=== PATIENT | male | born 1970 | race Caucasian/White ===

== ENCOUNTER 2016-11-20 08:55 | Observation (INO) | payer OTHER ==
[~2016-11-20] VITALS: Ht 188 cm; Wt 98.9 kg
[2016-11-20] VITALS (10 sets, daily range): BP systolic 97–132; BP diastolic 69–90
[~2016-11-20 08:55] MED LIST: AMOX500C2 PO; AMOX500T2 PO; APIX5TAB2 PO; DILT240C54 PO; DILT240C86 PO; DILT300C PO; HYDR-1231 PO; NITR-65 PO; POTA99TA15 PO; RIVA20TA2 PO; SERT50TA PO; TMSL.4C PO
[2016-11-20] MEDS ORDERED: METO-274 PO (09:11)
[2016-11-20] MEDS ORDERED: DILTIAZEM DRIP 100 MG in SODIUM CHLORIDE (ADD-VANTAGE) 100 ML IV SCH (09:15)
[2016-11-20] MEDS ORDERED: DILTIAZEM 25 MG/5 ML INJ (CARDIZEM) VIAL IVP ONE (09:15)
[2016-11-20] MEDS ORDERED: ASPIRIN 81 MG CHEW (CHILDREN'S ASA) PO ONE (09:15)
[2016-11-20 09:17] LABS: BASOPHILS % (AUTO) 0 % (0-10); EOSINOPHILS # (AUTO) 0.1 10^3/uL (0.0-0.3); EOSINOPHILS % (AUTO) 1 % (0-10); LYMPHOCYTES # (AUTO) 1.9 X 10^3 (1.0-4.0); LYMPHOCYTES % (AUTO) 25 % (12-44); MEAN CORPUSCULAR HEMOGLOBIN 31 PG (25-34); MEAN CORPUSCULAR HGB CONC 34 G/DL (32-36); MEAN CORPUSCULAR VOLUME 90 FL (80-99); MEAN PLATELET VOLUME 11.6 FL (7.4-10.4); MONOCYTES # (AUTO) 0.7 X 10^3 (0.0-1.0); MONOCYTES % (AUTO) 9 % (0-12); NEUTROPHILS % (AUTO) 65 % (42-75); PLATELET COUNT 158 10^3/uL (130-400); RED BLOOD COUNT 4.91 10^6/uL (4.35-5.85); RED CELL DISTRIBUTION WIDTH 12.9 % (10.0-14.5); WHITE BLOOD COUNT 7.7 10^3/uL (4.3-11.0)
[2016-11-20 09:26] LABS: INR 1.1 (0.8-1.4); PROTHROMBIN TIME PATIENT 13.7 SEC (12.2-14.7)
[2016-11-20 09:38] LABS: ALANINE AMINOTRANSFERASE 42 U/L (0-55); ALBUMIN 4.5 G/DL (3.2-4.5); ANION GAP 12 MMOL/L (5-14); ASPARTATE AMINO TRANSFERASE 34 U/L (5-34); BILIRUBIN,TOTAL 0.9 MG/DL (0.1-1.0); BLOOD UREA NITROGEN 15 MG/DL (7-18); BUN/CREATININE RATIO 12; CALCIUM 9.1 MG/DL (8.5-10.1); CARBON DIOXIDE 24 MMOL/L (21-32); CHLORIDE 104 MMOL/L (98-107); CREATININE SERUM 1.26 MG/DL (0.60-1.30); GFR ESTIMATED > 60; GLUCOSE 101 MG/DL (70-105); MAGNESIUM 2.3 MG/DL (1.8-2.4); POTASSIUM 4.5 MMOL/L (3.6-5.0); SODIUM 140 MMOL/L (135-145); TOTAL PROTEIN 7.6 G/DL (6.4-8.2)
[2016-11-20 09:45] LABS: MYOGLOBIN SERUM 51.1 NG/ML (10.0-92.0)
--- NOTE | 2016-11-20 09:46 | Diagnostic Imaging Report ---
INDICATION: Atrial fibrillation PA chest obtained at 9:29 a.m. Heart and mediastinal silhouette are normal in appearance. The lungs are clear. There is no pneumothorax or pleural fluid. IMPRESSION: Negative chest and no change from 08/24/16. Dictated by: Dictated on workstation # [id number]
--- NOTE | 2016-11-20 11:18 | Cardiology History & Physical ---
HPI-Cardiology Cardiology H&P Date of Admission 11-20-16 Primary Care Physician Nati,Local Physician Attending Physician Nenita Boyd MD FACP [facility] Consulting Physician JERROD Mr. Garza is a 46 year old male who is being admitted to ICU from the ED. He reports he had been at work all night and has only slept approx 2 hours in the last 24 hours. 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 No c/o CP, syncope or near syncope. He is currently feeling better. He states he has been taking his Torpol XL 100mg daily. Review of Systems-Cardiology Review of Systems Constitutional: As described under HPI Eyes: No blurred vision, No drainage, No pain, No vision change Ears/Nose/Throat: No ear discharge, No ear pain, No nasal drainage, No ulcerations Respiratory: As described under HPI Cardiovascular: As described under HPI Gastrointestinal: No constipation, No diarrhea, No nausea, No vomiting, No stool coloration changes Genitourinary: No dysuria, No discharge, No frequency, No hematuria, No urgency Skin: No rash, No skin related problems, No ulcerations Psychiatric/Neurological: No anxiety, No depression, No focal weakness, No seizure, No syncope Hematologic: No bleeding abnormalities JLB-Kxalxu-Yujruf Hx Patient Social History Alcohol Use: Occasionally Uses Recreational Drug Use: No Smoking Status: Former Smoker Former smoker/When Quit: February 09, 2008 Recent Foreign Travel: No Recent Infectious Disease Expo: No Immunizations Up To Date Tetanus Booster (TDap): Unknown Past Medical History PMH As described under Assessment. Family Medical History Family Medical History: He reports a brother with hypertension and palpitations. His sister has hypertension. No family h/o of premature CAD. Family History: 19 MOTHER Colon cancer G8 BROTHER Hypertension G8 SISTER Hypertension Kidney disease Allergies and Home Medications Allergies Coded Allergies: No Known Drug Allergies (Unverified , 09/05/14) Home Medications Metoprolol Succinate 100 Mg Tab.er.24h 100 MG PO DAILY (Reported) Physical Exam-Cardiology Physical Exam Vital Signs/I&O Vital Sign - Last 12Hours 11/20/16 11/20/16 11/20/16 11/20/16 08:59 09:12 09:21 12:25 Temp 98.1 98.0 Pulse 144 124 89 Resp 16 16 16 B/P 192/125 148/110 Pulse Ox 100 99 98 O2 Delivery Room Air Nasal Cannula O2 Flow Rate 2 2.00 2 11/20/16 11/20/16 11/20/16 11/20/16 12:30 13:00 13:00 14:00 Temp 96.8 Pulse 113 67 67 68 Resp 18 13 15 B/P 107/88 120/89 114/81 Pulse Ox 96 O2 Delivery Room Air Room Air Room Air 11/20/16 11/20/16 11/20/16 11/20/16 14:29 15:00 16:00 16:00 Temp 97.9 Pulse 100 101 67 67 Resp 17 13 13 B/P 113/81 97/74 102/74 102/74 Pulse Ox 98 96 96 O2 Delivery Room Air Room Air Room Air Capillary Refill : Less Than 3 Seconds Constitutional: appears stated ageNo apparent distress, well-developed well- nourished HEENT: PERRLNo discharge, hearing is well preserved oral hygience is goodNo ulceration, No xanthelasmas are seen Neck: No carotid bruit, carotid pulses are 2 + bilaterally Cardiovascular: irregularly irregularNo JVD, S1 and S2 Gastrointestinal: No tender, soft roundNo spleenomegaly Rectal: deferred Extremities: No clubbing, No cyanosis, No significant edema Neurologic/Psychiatric: alert oriented x 3 power is 5/5 both on sides Skin: No rash, No ulcerations Data Review Labs Laboratory Tests 11/20/16 09:05: Activated Partial Thromboplast Time 29, Alanine Aminotransferase (ALT/SGPT) 42, Albumin 4.5, Alkaline Phosphatase 58, Anion Gap 12, Aspartate Amino Transf (AST/ SGOT) 34, BUN/Creatinine Ratio 12, Basophils # (Auto) 0.0, Basophils (%) (Auto) 0, Blood Urea Nitrogen 15, Calcium Level 9.1, Carbon Dioxide Level 24, Chloride Level 104, Creatinine 1.26, Eosinophils # (Auto) 0.1, Eosinophils (%) (Auto) 1, Estimat Glomerular Filtration Rate > 60, Glucose Level 101, Hematocrit 44, Hemoglobin 15.0, INR Comment 1.1, Lymphocytes # (Auto) 1.9, Lymphocytes (%) ( Auto) 25, Magnesium Level 2.3, Mean Corpuscular Hemoglobin 31, Mean Corpuscular Hemoglobin Concent 34, Mean Corpuscular Volume 90, Mean Platelet Volume 11.6H, Monocytes # (Auto) 0.7, Monocytes (%) (Auto) 9, Myoglobin 51.1, Neutrophils # ( Auto) 5.0, Neutrophils (%) (Auto) 65, Platelet Count 158, Potassium Level 4.5, Prothrombin Time 13.7, Red Blood Count 4.91, Red Cell Distribution Width 12.9, Sodium Level 140, TSH [place] Testing 2.15, Total Bilirubin 0.9, Total Protein 7.6, Troponin I < 0.30, White Blood Count 7.7 Radiology NAME: JOHN GARZA [facility] REC#: [id number] PT STATUS: REG ER : 1970 PHYSICIAN: ALFRED GASTON MD ADMIT DATE: 11/20/16/ER Signed Date of Exam: 11/20/16 CHEST 1 VIEW, AP/PA ONLY INDICATION: Atrial fibrillation PA chest obtained at 9:29 a.m. Heart and mediastinal silhouette are normal in appearance. The lungs are clear. There is no pneumothorax or pleural fluid. IMPRESSION: Negative chest and no change from 08/24/16. Dictated by: Dictated on workstation # [id number] Dict: 11/20/16 0941 Trans: 11/20/16 0957 [facility] [id number] Interpreted by: ANGELA CARLSON MD Electronically signed by:ANGELA CARLSON MD 11/20/16 0959 ECG Impression ECG Initial ECG Impression: Atrial Fibrillation w/RVR A/P-Cardiology Assessment/Admission Diagnosis Atrial fib with RVR Hypertension PAF - electrical cardioversion on 05-03-13, 09-05-2014, and 03-01-15. RFA by Dr Link in May 2015. Oral anticoag stopped by Dr Link in Aug 2016 BETTE 09-05-14 and of 03-01-15 showed LVEF 60%. No significant valvular regurgitation or stenoses see. No evidence of intracardiac thrombus or intracardiac shunt CT Abd/Pelvis 09-10-14 showed calcification in the left renal pelvis near the ureteropelvic junction without significant obstruction - following with his PCP Intermittent heavy alcohol use - cessation advised Chronic tobacco use (chews) - cessation advised H/o anxiety Discussion and Recomendations H/O PAF for which he has seen Dr. Link in the past and has undergone several cardioversions and most recently ablation in 2015. He is currently in a-fib with RVR. He is being maintained on a Cardizem gtt. He was previously not on OAC. We will restart him on OAC with Eliquis for stroke prophylaxis. We have discussed this with him. We will do an echocardiogram to evaluate LVEF and valvular status. Further recommendations will be based on his hospital course. This H&P is being scribed by Tabitha Ribera APRN on behalf of Dr. Boyd after discussion regarding plan of care Physician Assessment Physician Assessment Lungs: good bilat air entry Cor: irreg A&R * As documented in our note above * I spoke with him and answered questions * Will be in ICU while on iv diltiazem ROCKY RIBERA Nov 20, 2016 11:18 NENITA BOYD MD FACP FAC CCDS Nov 20, 2016 17:12
[2016-11-20] MEDS ORDERED: APIXABAN 5 MG (ELIQUIS) TABLET PO ONE (11:30)
--- NOTE | 2016-11-20 11:33 | ED Cardiac General ---
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 He believes he is in atrial fibrillation. He has a history of atrial fibrillation and had an ablation procedure performed about a year and a half ago at [facility]. He was taken off of anticoagulation shortly after that ablation. He has had no episodes of A. fib to his knowledge in the interim. Atrial fibrillation is confirmed on the monitor and EKG. Allergies and Home Medications Allergies Coded Allergies: No Known Drug Allergies (Unverified , 09/05/14) Home Medications Metoprolol Succinate 100 Mg Tab.er.24h #30 (Reported) Review of Systems Constitutional: no symptoms reported EENTM: No Symptoms Reported Respiratory: No Symptoms Reported Cardiovascular: See HPI Gastrointestinal: No Symptoms Reported Genitourinary: No Symptoms Reported Musculoskeletal: no symptoms reported Skin: no symptoms reported Endocrine: No Symptoms Reported Past Zksyuiw-Yizzzc-Yxfodt Hx Patient Social History Alcohol Use: Occasionally Uses Recreational Drug Use: No Smoking Status: Former Smoker Former Smoker/When Quit: February 09, 2008 Recent Foreign Travel: No Contact w/Someone Who Travel: No Recent Infectious Disease Expo: No Recent Hopitalizations: No Immunizations Up To Date Tetanus Booster (TDap): Unknown Surgeries HX Surgeries: Yes (ATRIAL FIBRILLATION--S/P CARDIAC ABLATION) Surgeries: Appendectomy, Cardiac (ablation for treatment of atrial fibrillation ) Respiratory Hx Respiratory Disorders: No Cardiovascular Hx Cardiac Disorders: Yes (S/P ABLATION) Cardiac Disorders: Atrial Fibrillation, Hypertension Neurological Hx Neurological Disorders: Yes Neurological Disorders: Concussion Reproductive System Hx Reproductive Disorders: No Genitourinary Hx Genitourinary Disorders: No Gastrointestinal Hx Gastrointestinal Disorders: No Musculoskeletal Hx Musculoskeletal Disorders: No Endocrine Hx Endocrine Disorders: No HEENT HX ENT Disorders: No Cancer Hx Cancer: No Psychosocial Hx Psychiatric Problems: No Integumentary HX Skin/Integumentary Disorder: No Blood Transfusions Hx Blood Disorders: No Adverse Reaction to a Blood Tr: No Family Medical History Family Medial History: Colon cancer 19 MOTHER Hypertension G8 BROTHER G8 SISTER Kidney disease G8 SISTER Physical Exam Vital Signs Vital Sign - Last 12Hours 11/20/16 11/20/16 08:59 09:12 Temp 98.1 Pulse 144 Resp 16 B/P 192/125 Pulse Ox 100 O2 Delivery Room Air O2 Flow Rate 2 Capillary Refill : Less Than 3 Seconds General Appearance: WD/WN Mild Distress HEENT: PERRL/EOMI Normal ENT Inspection Neck: Normal Inspection Respiratory: Lungs Clear Normal Breath Sounds No Accessory Muscle Use No Respiratory Distress Cardiovascular: No Edema No Murmur Irregularly Irregular Tachycardia Gastrointestinal: Non Tender Soft Extremity: Normal Inspection No Pedal Edema Neurologic/Psychiatric: Alert Oriented x3 No Motor/Sensory Deficits Normal Mood/Affect senior software development engineer II-XII Norm as Tested Skin: Normal Color Warm/Dry Progress/Results/Core Measures Results/Orders Lab Results Laboratory Tests Test 11/20/16 09:05 Range/Units Activated Partial Thromboplast Time 29 24-35 SEC Alanine Aminotransferase (ALT/SGPT) 42 0-55 U/L Albumin 4.5 3.2-4.5 G/DL Alkaline Phosphatase 58 40-136 U/L Anion Gap 12 5-14 MMOL/L Aspartate Amino Transf (AST/SGOT) 34 5-34 U/L BUN/Creatinine Ratio 12 Basophils # (Auto) 0.0 0.0-0.1 10^3/uL Basophils (%) (Auto) 0 0-10 % Blood Urea Nitrogen 15 7-18 MG/DL Calcium Level 9.1 8.5-10.1 MG/DL Carbon Dioxide Level 24 21-32 MMOL/L Chloride Level 104 98-107 MMOL/L Creatinine 1.26 0.60-1.30 MG/DL Eosinophils # (Auto) 0.1 0.0-0.3 10^3/uL Eosinophils (%) (Auto) 1 0-10 % Estimat Glomerular Filtration Rate > 60 Glucose Level 101 70-105 MG/DL Hematocrit 44 40-54 % Hemoglobin 15.0 13.3-17.7 G/DL INR Comment 1.1 0.8-1.4 Lymphocytes # (Auto) 1.9 1.0-4.0 X 10^3 Lymphocytes (%) (Auto) 25 12-44 % Magnesium Level 2.3 1.8-2.4 MG/DL Mean Corpuscular Hemoglobin 31 25-34 PG Mean Corpuscular Hemoglobin Concent 34 32-36 G/DL Mean Corpuscular Volume 90 80-99 FL Mean Platelet Volume 11.6 H 7.4-10.4 FL Monocytes # (Auto) 0.7 0.0-1.0 X 10^3 Monocytes (%) (Auto) 9 0-12 % Myoglobin 51.1 10.0-92.0 NG/ML Neutrophils # (Auto) 5.0 1.8-7.8 X 10^3 Neutrophils (%) (Auto) 65 42-75 % Platelet Count 158 130-400 10^3/uL Potassium Level 4.5 3.6-5.0 MMOL/L Prothrombin Time 13.7 12.2-14.7 SEC Red Blood Count 4.91 4.35-5.85 10^6/uL Red Cell Distribution Width 12.9 10.0-14.5 % Sodium Level 140 135-145 MMOL/L TSH [place] Testing 2.15 0.35-4.94 UIU/ML Total Bilirubin 0.9 0.1-1.0 MG/DL Total Protein 7.6 6.4-8.2 G/DL Troponin I < 0.30 <0.30 NG/ML White Blood Count 7.7 4.3-11.0 10^3/uL My Orders Orders-ALFRED GASTON MD Cbc With Automated Diff (11/20/16 09:06) Magnesium (11/20/16 09:06) Chest 1 View, Ap/Pa Only (11/20/16 09:06) Ekg Tracing (11/20/16 09:06) Cardiac Profile 1 (11/20/16 09:06) Comprehensive Metabolic Panel (11/20/16 09:06) Myoglobin Serum (11/20/16 09:06) Protime With Inr (11/20/16 09:06) Partial Thromboplastin Time (11/20/16 09:06) O2 (11/20/16 09:06) Monitor-Rhythm Ecg Trace Only (11/20/16 09:06) Lipid Panel (11/21/16 06:00) Aspirin Chewable Tablet (Baby Aspirin Ch (11/20/16 09:15) Saline Lock/Iv-Start (11/20/16 09:06) Thyroid Analyzer (11/20/16 09:06) Diltiazem Injection (Cardizem Injection) (11/20/16 09:15) Sodium Chloride (Ad... W/Diltiazem Drip (11/20/16 09:15) Apixaban Tablet (Eliquis Tablet) (11/20/16 11:30) Medications Given in ED Current Medications Medications Dose Ordered Sig/Essie Route Start Time Stop Time Status Last Admin Dose Admin Aspirin 324 mg ONCE ONCE PO 11/20/16 09:15 11/20/16 09:16 DC 11/20/16 09:18 324 MG Diltiazem HCl 10 mg ONCE ONCE IVP 11/20/16 09:15 11/20/16 09:16 DC 11/20/16 09:18 10 MG Vital Signs/I&O Vital Sign - Last 12Hours 11/20/16 11/20/16 11/20/16 08:59 09:12 09:21 Temp 98.1 98.0 Pulse 144 124 Resp 16 16 B/P 192/125 148/110 Pulse Ox 100 99 O2 Delivery Room Air Nasal Cannula O2 Flow Rate 2 2.00 Blood Pressure Mean: 147 Progress Note : Progress Note Patient was started on a Cardizem drip and the drip was titrated up until satisfactory response. Heart rate eventually decreased to about 100. Case was reviewed with Dr. Boyd who advised admission on continued Cardizem drip. He requested Eliquis 5 mg be administered prior to transfer upstairs. Diagnostic Imaging Diagonstic Imaging: Xray Plain Films/CT/US/NM/MRI: chest Comments NAME: JOHN GARZA [facility] REC#: [id number] PT STATUS: REG ER : 1970 PHYSICIAN: ALFRED GASTON MD ADMIT DATE: 11/20/16/ER Signed Date of Exam: 11/20/16 CHEST 1 VIEW, AP/PA ONLY INDICATION: Atrial fibrillation PA chest obtained at 9:29 a.m. Heart and mediastinal silhouette are normal in appearance. The lungs are clear. There is no pneumothorax or pleural fluid. IMPRESSION: Negative chest and no change from 08/24/16. Dictated by: Dictated on workstation # [id number] Dict: 11/20/16 0941 Trans: 11/20/16 0957 [facility] [id number] Interpreted by: ANGELA CARLSON MD Electronically signed by:ANGELA CARLSON MD 11/20/16 0959 Departure Communication Time/Spoke to Admitting Phy: 11:[address] Boyd Impression Impression: Primary Impression: Atrial fibrillation with RVR Disposition: ADMITTED INPATIENT Condition: Improved Decision to Admit Reason: Admit from ER (General) Decision to Admit/Date: Nov 20, 2016 Time/Decision to Admit Time: 11:00 Departure-Patient Inst. Referrals: NO,LOCAL PHYSICIAN (PCP/Family) Primary Care Physician ALFRED GASTON MD Nov 20, 2016 11:32
[2016-11-20] MEDS ORDERED: CATHETER FLUSH 10 ML SYR IV PRN (13:00)
[2016-11-20] MEDS ORDERED: FLU TRIvalent (5 YOA+) 2016-17 (AFLURIA) 0.5 ML IM ONE (14:00)
[2016-11-20] MEDS: CATHETER FLUSH 10 ML SYR IV SCH ×2 (14:00→22:00)
[2016-11-20] MEDS: DILTIAZEM DRIP 100 MG/NS 100 ML IV SCH ×4 (14:29→20:55)
[2016-11-20] MEDS: APIXABAN 5 MG (ELIQUIS) TABLET PO SCH (20:54)
[2016-11-21] VITALS (12 sets, daily range): BP systolic 94–136; BP diastolic 61–104
[2016-11-21 04:44] LABS: CHOLESTEROL 187 MG/DL (< 200); DIRECT LDL 122 MG/DL (1-129); TRIGLYCERIDES 201 MG/DL (<150); VLDL CHOLESTEROL 40 MG/DL (5-40)
[2016-11-21] MEDS: CATHETER FLUSH 10 ML SYR IV SCH (05:53)
[2016-11-21] MEDS ORDERED: MAGNESIUM 1 GM/100 ML IVPB 100 ML IV SCH (06:00)
[2016-11-21] MEDS ORDERED: POTASSIUM CL 10MEQ/50ML IVPB 50 ML IV SCH (06:00)
[2016-11-21] MEDS ORDERED: KCL 20 MEQ TAB (K-DUR) PO SCH (06:00)
[2016-11-21] MEDS: DILTIAZEM DRIP 100 MG/NS 100 ML IV SCH ×2 (06:57)
[2016-11-21 07:54] LABS: BASOPHILS % (AUTO) 1 % (0-10); EOSINOPHILS # (AUTO) 0.1 10^3/uL (0.0-0.3); EOSINOPHILS % (AUTO) 2 % (0-10); LYMPHOCYTES # (AUTO) 1.9 X 10^3 (1.0-4.0); LYMPHOCYTES % (AUTO) 29 % (12-44); MEAN CORPUSCULAR HEMOGLOBIN 31 PG (25-34); MEAN CORPUSCULAR HGB CONC 34 G/DL (32-36); MEAN CORPUSCULAR VOLUME 91 FL (80-99); MEAN PLATELET VOLUME 12.4 FL (7.4-10.4); MONOCYTES # (AUTO) 0.7 X 10^3 (0.0-1.0); MONOCYTES % (AUTO) 11 % (0-12); NEUTROPHILS # (AUTO) 3.7 X 10^3 (1.8-7.8); NEUTROPHILS % (AUTO) 58 % (42-75); PLATELET COUNT 151 10^3/uL (130-400); RED BLOOD COUNT 4.73 10^6/uL (4.35-5.85); RED CELL DISTRIBUTION WIDTH 12.9 % (10.0-14.5); WHITE BLOOD COUNT 6.4 10^3/uL (4.3-11.0)
[2016-11-21 08:13] LABS: ALANINE AMINOTRANSFERASE 34 U/L (0-55); ALBUMIN 3.8 G/DL (3.2-4.5); ANION GAP 12 MMOL/L (5-14); ASPARTATE AMINO TRANSFERASE 27 U/L (5-34); BILIRUBIN,TOTAL 0.8 MG/DL (0.1-1.0); BLOOD UREA NITROGEN 21 MG/DL (7-18); BUN/CREATININE RATIO 18; CALCIUM 8.9 MG/DL (8.5-10.1); CARBON DIOXIDE 22 MMOL/L (21-32); CHLORIDE 106 MMOL/L (98-107); CREATININE SERUM 1.17 MG/DL (0.60-1.30); GFR ESTIMATED > 60; GLUCOSE 106 MG/DL (70-105); MAGNESIUM 2.2 MG/DL (1.8-2.4); POTASSIUM 4.7 MMOL/L (3.6-5.0); SODIUM 140 MMOL/L (135-145); TOTAL PROTEIN 6.8 G/DL (6.4-8.2)
[2016-11-21] MEDS: APIXABAN 5 MG (ELIQUIS) TABLET PO SCH (08:19)
[2016-11-21] MEDS ORDERED: DILTIAZEM 180 MG (CARDIZEM CD) CAP PO SCH (09:00)
--- NOTE | 2016-11-21 11:48 | Progress Note-Cardiology ---
Cardiology SOAP Progress Note Subjective: Feels better. No cp or syncope or shortness of breath. Palp much improved. Wishes to go home Objective: I&O/Vital Signs Vital Sign - Last 12Hours 11/21/16 11/21/16 11/21/16 11/21/16 00:00 01:00 01:00 02:00 Temp 98.0 Pulse 80 86 86 62 Resp 18 16 14 B/P 94/66 105/94 100/64 Pulse Ox 96 95 93 O2 Delivery Room Air Room Air Room Air 11/21/16 11/21/16 11/21/16 11/21/16 03:00 04:00 05:00 06:00 Temp 96.7 Pulse 70 71 92 74 B/P 115/61 110/78 107/80 96/64 Pulse Ox 94 O2 Delivery Room Air Room Air Room Air Room Air 11/21/16 11/21/16 11/21/16 11/21/16 06:57 07:00 08:19 08:19 Temp 96.7 98.1 Pulse 74 66 72 Resp 14 16 B/P 96/64 103/80 Pulse Ox 94 97 97 O2 Delivery Room Air O2 Flow Rate 2.00 11/21/16 11:39 Temp 97.8 Intake and Output 11/21/16 00:00 Intake Total 790 ml Output Total 550 ml Balance 240 ml Weight (Pounds): 218 Weight (Ounces): 1.0 Weight (Calculated Kilograms): 98.485106 Constitutional: appears stated ageNo apparent distress, well-developed well- nourished Cardiovascular: irregularly irregularNo JVD, S1 and S2 Gastrointestional: No tender, soft roundNo spleenomegaly Extremities: No clubbing, No cyanosis, No significant edema Neurologic/Psychiatric: alert oriented x 3 power is 5/5 both on sides Skin: No rash, No ulcerations Results/Procedures: Labs Laboratory Tests 11/21/16 04:00: Alanine Aminotransferase (ALT/SGPT) 34, Albumin 3.8, Alkaline Phosphatase 51, Anion Gap 12, Aspartate Amino Transf (AST/SGOT) 27, BUN/Creatinine Ratio 18, Basophils # (Auto) 0.0, Basophils (%) (Auto) 1, Blood Urea Nitrogen 21H, Calcium Level 8.9, Carbon Dioxide Level 22, Chloride Level 106, Cholesterol Level 187, Creatinine 1.17, Eosinophils # (Auto) 0.1, Eosinophils (%) (Auto) 2, Estimat Glomerular Filtration Rate > 60, Glucose Level 106H, HDL Cholesterol 34L , Hematocrit 43, Hemoglobin 14.6, LDL Cholesterol Direct 122, Lymphocytes # ( Auto) 1.9, Lymphocytes (%) (Auto) 29, Magnesium Level 2.2, Mean Corpuscular Hemoglobin 31, Mean Corpuscular Hemoglobin Concent 34, Mean Corpuscular Volume 91, Mean Platelet Volume 12.4H, Monocytes # (Auto) 0.7, Monocytes (%) (Auto) 11 , Neutrophils # (Auto) 3.7, Neutrophils (%) (Auto) 58, Platelet Count 151, Potassium Level 4.7, Red Blood Count 4.73, Red Cell Distribution Width 12.9, Sodium Level 140, Total Bilirubin 0.8, Total Protein 6.8, Triglycerides Level 201H, VLDL Cholesterol 40, White Blood Count 6.4 Laboratory Tests 11/20/16 09:05 11/21/16 04:00 A/P: Assessment: Atrial fib with RVR, now rate better controlled Apixaban anticoag reinitiated during this hosp Hypertension PAF - electrical cardioversion on 05-03-13, 09-05-2014, and 03-01-15. RFA by Dr Link in May 2015. Oral anticoag stopped by Dr Link in Aug 2016 BETTE 09-05-14 and of 03-01-15 showed LVEF 60%. No significant valvular regurgitation or stenoses see. No evidence of intracardiac thrombus or intracardiac shunt CT Abd/Pelvis 09-10-14 showed calcification in the left renal pelvis near the ureteropelvic junction without significant obstruction - following with his PCP Intermittent heavy alcohol use - cessation advised Chronic tobacco use (chews) - cessation advised H/o anxiety Plan: * Long-acting dilt added * Apixaban added * Outpatient f/u on 11/24/16. If remains in a fib, will consider elec CV * Advised to avoid alcohol use completely * Return to ER in case of recurrent symptoms or new symptoms YOUNG RAMACHANDRAN MD FACP FAC CCDS Nov 21, 2016 11:47
[2016-11-21] MEDS ORDERED: DILT240C86 PO (11:50)
[2016-11-21] MEDS ORDERED: APIX5TAB PO (11:50)
--- NOTE | 2016-11-21 11:51 | Discharge Inst-Cardiology ---
Discharge Inst-Cardiac Discharge Medications New Medications: Diltiazem HCl (Cardizem Cd) 240 Mg Cap.er.24h 240 MG PO DAILY #30 Ref 3 CAP Continued Medications: Metoprolol Succinate (Metoprolol Succinate) 100 Mg Tab.er.24h 100 MG PO DAILY TAB Patient Instructions Patient Instructions: F/u with Dr Boyd on 11/24/16 YOUNG BOYD MD FACP FAC CCDS Nov 21, 2016 11:51
--- NOTE | 2016-11-21 11:52 | Cardiology Discharge Summary ---
Diagnosis/Chief Complaint Date of Admission Nov 20, 2016 at 11:10 Date of Discharge Final/Discharge Diagnosis Atrial fib with RVR, now rate better controlled Apixaban anticoag reinitiated during this hosp Hypertension PAF - electrical cardioversion on 05-03-13, 09-05-2014, and 03-01-15. RFA by Dr Link in May 2015. Oral anticoag stopped by Dr Link in Aug 2016 BETTE 09-05-14 and of 03-01-15 showed LVEF 60%. No significant valvular regurgitation or stenoses see. No evidence of intracardiac thrombus or intracardiac shunt CT Abd/Pelvis 09-10-14 showed calcification in the left renal pelvis near the ureteropelvic junction without significant obstruction - following with his PCP Intermittent heavy alcohol use - cessation advised Chronic tobacco use (chews) - cessation advised H/o anxiety Chief Complaint/HPI Chief Complaint/HPI Mr. Pennington is a 46 year old male who is being admitted to ICU from the ED. He reports he had been at work all night and has only slept approx 2 hours in the last 24 hours. 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 No c/o CP, syncope or near syncope. He is currently feeling better. He states he has been taking his Torpol XL 100mg daily. See note of 11/21/16 Discharge Summary Procedures None. Hospital Course Pending Labs Laboratory Tests 11/21/16 04:00: Alanine Aminotransferase (ALT/SGPT) 34, Albumin 3.8, Alkaline Phosphatase 51, Anion Gap 12, Aspartate Amino Transf (AST/SGOT) 27, BUN/Creatinine Ratio 18, Basophils # (Auto) 0.0, Basophils (%) (Auto) 1, Blood Urea Nitrogen 21, Calcium Level 8.9, Carbon Dioxide Level 22, Chloride Level 106, Cholesterol Level 187, Creatinine 1.17, Eosinophils # (Auto) 0.1, Eosinophils (%) (Auto) 2, Estimat Glomerular Filtration Rate > 60, Glucose Level 106, HDL Cholesterol 34, Hematocrit 43, Hemoglobin 14.6, LDL Cholesterol Direct 122, Lymphocytes # (Auto ) 1.9, Lymphocytes (%) (Auto) 29, Magnesium Level 2.2, Mean Corpuscular Hemoglobin 31, Mean Corpuscular Hemoglobin Concent 34, Mean Corpuscular Volume 91, Mean Platelet Volume 12.4, Monocytes # (Auto) 0.7, Monocytes (%) (Auto) 11, Neutrophils # (Auto) 3.7, Neutrophils (%) (Auto) 58, Platelet Count 151, Potassium Level 4.7, Red Blood Count 4.73, Red Cell Distribution Width 12.9, Sodium Level 140, Total Bilirubin 0.8, Total Protein 6.8, Triglycerides Level 201, VLDL Cholesterol 40, White Blood Count 6.4 Discussion & Recommendations Home Medications Reviewed patient Home Medication Reconciliation Form Discharge Home Medications: Reviewed and agree with Discharge Medication list on patient's Discharge Instruction sheet Clinical Quality Measures DVT/VTE Risk/Contraindication: Risk Factor Score Per Nursin RFS Level Per Nursing on Admit: 1=Low/No VTE PPX YOUNG RAMACHANDRAN MD FACP [facility] CCDS Nov 21, 2016 11:52
--- NOTE | 2016-11-26 07:54 | ECHOCARDIOGRAPHY REPORT ---
PROCEDURE PHYSICIAN: YOUNG BOYD DATE OF PROCEDURE: 11/20/2016 TWO DIMENSIONAL ECHOCARDIOGRAM REPORT PRIMARY PHYSICIAN: OTHER PHYSICIAN: Dr. Boyd REFERRING PHYSICIAN: ORDERING PHYSICIAN: Kandy Ribera APRN INDICATION FOR THE PROCEDURE: Atrial fibrillation. MEASUREMENTS DERIVED VALUES LV DIAMETER (LAX) NORMALS NORMALS Diastolic 3.7 (3.6-5.2) Eject. Fract. (60%+/-6%) Systolic (2.3-3.9) Diastolic Vol. % Shortening (0.22-0.42) Systolic Vol. Aortic Root 3.3 IVS THICKNESS Diastolic 1.4 (0.6-1.1) LVPW THICKNESS Diastolic 1.4 (0.6-1.1) LA DIAMETER Systolic 3.9 (2.1-3.7) DESCRIPTION: Two-dimensional echocardiography shows normal global left ventricular systolic function with normal regional wall motion. Aortic, mitral and tricuspid valve leaflets show good leaflet excursion. Doppler imaging shows trivial tricuspid regurgitation. There is no Doppler evidence of any significant valvular stenosis. Pulmonary artery systolic pressure is estimated to be approximately 30 mmHg. The aortic valve appears to be trileaflet. Left ventricular ejection fraction is approximately 75%. There is no evidence of any significant intracardiac shunt on this transthoracic echocardiographic study. Inferior vena cava is not dilated and appears mostly collapsed during the study. CONCLUSION: 1. Normal to hyperdynamic left ventricular systolic function with an ejection fraction of 75%. 2. Trivial tricuspid regurgitation. 3. Pulmonary artery systolic pressure is estimated to be approximately 30 mmHg. 4. No evidence of any significant valvular stenosis. Job ID: [id number] Dictated Date: 11/25/2016 13:55:05 Head Machinist Date: 11/26/2016 07:49:22 / marielle
== END 2016-11-21 11:40 | disposition home or self-care (01) ==
LOC: EDUNIT# 08:55 → ER 08:56 → ICU 11:10 → UNDOADMOB 11:10 → ICU 12:30 → UNDODISOB 11-21 11:40
PROVIDERS: ADMIT Internal Medicine Cardiovascular Disease; ATTEND Internal Medicine Cardiovascular Disease
DX: I48.91 Unspecified atrial fibrillation (principal); I10 Essential (primary) hypertension; Z72.89 Other problems related to lifestyle; Z72.0 Tobacco use; F41.9 Anxiety disorder, unspecified
CPT/HCPCS: 36415; 71010; 80053; 80061; 83735; 83874; 84443; 84484; 85025; 85610; 85730; 93005; 93041; 93306; 96365; 96366; 99211; G0378

== ENCOUNTER 2018-04-01 16:16 | Emergency (ER) | payer BC, OTHER ==
[~2018-04-01] VITALS: Ht 188 cm; Wt 102.1 kg
[~2018-04-01 16:16] MED LIST changes: +APIX5TAB PO; +METO-387; +METO-387 PO; +METO-395 PO; +SERT100T8
[2018-04-01 16:43] LABS: BASOPHILS % (AUTO) 0 % (0-10); EOSINOPHILS # (AUTO) 0.1 10^3/uL (0.0-0.3); EOSINOPHILS % (AUTO) 2 % (0-10); HEMATOCRIT 43 % (40-54); HEMOGLOBIN 14.7 G/DL (13.3-17.7); LYMPHOCYTES # (AUTO) 1.4 X 10^3 (1.0-4.0); LYMPHOCYTES % (AUTO) 24 % (12-44); MEAN CORPUSCULAR HEMOGLOBIN 30 PG (25-34); MEAN CORPUSCULAR HGB CONC 34 G/DL (32-36); MEAN CORPUSCULAR VOLUME 87 FL (80-99); MEAN PLATELET VOLUME 11.7 FL (7.4-10.4); MONOCYTES # (AUTO) 0.3 X 10^3 (0.0-1.0); MONOCYTES % (AUTO) 5 % (0-12); NEUTROPHILS # (AUTO) 4.1 X 10^3 (1.8-7.8); NEUTROPHILS % (AUTO) 69 % (42-75); PLATELET COUNT 155 10^3/uL (130-400); RED BLOOD COUNT 4.93 10^6/uL (4.35-5.85); RED CELL DISTRIBUTION WIDTH 12.5 % (10.0-14.5)
[2018-04-01] MEDS ORDERED: ASPIRIN 81 MG CHEW (CHILDREN'S ASA) PO ONE (16:45)
[2018-04-01] MEDS ORDERED: NS IV 1000 ML 1,000 ML IV SCH (16:45)
--- NOTE | 2018-04-01 16:55 | Diagnostic Imaging Report ---
Indication: Tachycardia, history of atrial fibrillation. Frontal chest obtained at 443 hours p.m. and compared with 08/08/2017. Heart and mediastinal silhouette are normal in appearance. The lungs are clear. There is no pneumothorax or pleural fluid. Impression: Negative chest. Dictated by: Dictated on workstation # [id number]
[2018-04-01 17:06] LABS: ALANINE AMINOTRANSFERASE 33 U/L (0-55); ALBUMIN 4.4 GM/DL (3.2-4.5); ALKALINE PHOSPHATASE 52 U/L (40-136); BILIRUBIN,TOTAL 0.5 MG/DL (0.1-1.0); BUN/CREATININE RATIO 12; CALCIUM 9.5 MG/DL (8.5-10.1); CARBON DIOXIDE 29 MMOL/L (21-32); CHLORIDE 107 MMOL/L (98-107); CREATININE SERUM 1.12 MG/DL (0.60-1.30); GFR ESTIMATED > 60; GLUCOSE 138 MG/DL (70-105); MAGNESIUM 2.1 MG/DL (1.8-2.4); POTASSIUM 3.8 MMOL/L (3.6-5.0); SODIUM 142 MMOL/L (135-145); TOTAL PROTEIN 7.3 GM/DL (6.4-8.2)
[2018-04-01 17:12] LABS: MYOGLOBIN SERUM 43.9 NG/ML (10.0-92.0)
--- NOTE | 2018-04-01 17:15 | ED Cardiac General ---
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 Source: patient Exam Limitations: no limitations History of Present Illness Date Seen by Provider: Apr 01, 2018 Time Seen by Provider: 17:09 Initial Comments to ER with reports of tachycardia.He has a history of atrial fibrillation. He was formerly on Eliquis and is still on metoprolol. He was sent by Dr. Boyd to a corporate investigator in [place] and had an ablation done in 2014. He's not had any recurrent episodes of this feeling since then and has been taken off of his Eliquis, is only on a baby aspirin. Symptoms lasted for about 15 minutes before resolving spontaneously. He states he heart rate did not feel irregular, only fast. He counted his heart rate of 108. No chest pain, no shortness of breath. Timing/Duration: 1-2 days Severity: moderate NTG SL RELOCATION COUNSELOR: No ASA po RELOCATION COUNSELOR: No Allergies and Home Medications Allergies Coded Allergies: No Known Drug Allergies (Unverified , 09/05/14) Home Medications Metoprolol Succinate 25 Mg Tab.er.24h, 25 MG PO DAILY Prescribed by: MARILYNN CAMACHO on 08/04/17 0300 Patient Home Medication List Home Medication List Reviewed: Yes Review of Systems Constitutional: see HPI EENTM: No Symptoms Reported Respiratory: No Symptoms Reported Gastrointestinal: No Symptoms Reported Genitourinary: No Symptoms Reported Musculoskeletal: no symptoms reported Skin: no symptoms reported Psychiatric/Neurological: No Symptoms Reported Endocrine: No Symptoms Reported Hematologic/Lymphatic: No Symptoms Reported Past Aoqwfvl-Agvhbh-Usgxyp Hx Patient Social History Alcohol Use: Rarely Uses Number of Drinks Today: AA Alcohol Beverage of Choice: Beer Recreational Drug Use: Yes (THC) Smoking Status: Former Smoker Type Used: Smokeless Tobacco Former Smoker, Quit: Nov 20, 2007 2nd Hand Smoke Exposure: No Recent Foreign Travel: No Contact w/Someone Who Travel: No Recent Infectious Disease Expo: No Recent Hopitalizations: No Immunizations Up To Date Tetanus Booster (TDap): Unknown Seasonal Allergies Seasonal Allergies: No Past Medical History Surgeries: Yes (ATRIAL FIBRILLATION--S/P CARDIAC ABLATION(2014)) Appendectomy, Cardiac Respiratory: No Cardiac: Yes (S/P ABLATION) Atrial Fibrillation, Hypertension Neurological: Yes Concussion Reproductive Disorders: No Sexually Transmitted Disease: No HIV/AIDS: No Genitourinary: No Gastrointestinal: No Musculoskeletal: No Endocrine: No HEENT: No Cancer: No Psychosocial: No Integumentary: No Blood Disorders: No Adverse Reaction/Blood Tranf: No Family Medical History Colon cancer 19 MOTHER Hypertension G8 BROTHER G8 SISTER Kidney disease G8 SISTER Physical Exam Vital Signs Vital Signs - First Documented 04/01/18 16:23 Temp 98.0 Pulse 85 Resp 20 B/P (MAP) 155/114 (128) Pulse Ox 97 O2 Delivery Room Air Capillary Refill : Less Than 3 Seconds General Appearance: No Apparent Distress, WD/WN; No Anxious HEENT: PERRL/EOMI, TMs Normal Neck: Full Range of Motion, Normal Inspection Respiratory: Lungs Clear, Normal Breath Sounds, No Accessory Muscle Use, No Respiratory Distress Cardiovascular: Regular Rate, Rhythm, Normal Peripheral Pulses Gastrointestinal: Normal Bowel Sounds, Non Tender, Soft Extremity: Normal Capillary Refill, Normal Inspection Neurologic/Psychiatric: Alert, Oriented x3, No Motor/Sensory Deficits Skin: Normal Color, Warm/Dry Progress/Results/Core Measures Results/Orders Lab Results Laboratory Tests Test 04/01/18 16:34 04/01/18 16:56 Range/Units White Blood Count 6.0 4.3-11.0 10^3/uL Red Blood Count 4.93 4.35-5.85 10^6/uL Hemoglobin 14.7 13.3-17.7 G/DL Hematocrit 43 40-54 % Mean Corpuscular Volume 87 80-99 FL Mean Corpuscular Hemoglobin 30 25-34 PG Mean Corpuscular Hemoglobin Concent 34 32-36 G/DL Red Cell Distribution Width 12.5 10.0-14.5 % Platelet Count 155 130-400 10^3/uL Mean Platelet Volume 11.7 H 7.4-10.4 FL Neutrophils (%) (Auto) 69 42-75 % Lymphocytes (%) (Auto) 24 12-44 % Monocytes (%) (Auto) 5 0-12 % Eosinophils (%) (Auto) 2 0-10 % Basophils (%) (Auto) 0 0-10 % Neutrophils # (Auto) 4.1 1.8-7.8 X 10^3 Lymphocytes # (Auto) 1.4 1.0-4.0 X 10^3 Monocytes # (Auto) 0.3 0.0-1.0 X 10^3 Eosinophils # (Auto) 0.1 0.0-0.3 10^3/uL Basophils # (Auto) 0.0 0.0-0.1 10^3/uL Sodium Level 142 135-145 MMOL/L Potassium Level 3.8 3.6-5.0 MMOL/L Chloride Level 107 98-107 MMOL/L Carbon Dioxide Level 29 21-32 MMOL/L Anion Gap 6 5-14 MMOL/L Blood Urea Nitrogen 13 7-18 MG/DL Creatinine 1.12 0.60-1.30 MG/DL Estimat Glomerular Filtration Rate > 60 BUN/Creatinine Ratio 12 Glucose Level 138 H 70-105 MG/DL Calcium Level 9.5 8.5-10.1 MG/DL Magnesium Level 2.1 1.8-2.4 MG/DL Total Bilirubin 0.5 0.1-1.0 MG/DL Aspartate Amino Transf (AST/SGOT) 23 5-34 U/L Alanine Aminotransferase (ALT/SGPT) 33 0-55 U/L Alkaline Phosphatase 52 40-136 U/L Myoglobin 43.9 10.0-92.0 NG/ML Troponin I < 0.30 <0.30 NG/ML Total Protein 7.3 6.4-8.2 GM/DL Albumin 4.4 3.2-4.5 GM/DL Prothrombin Time 14.6 12.2-14.7 SEC INR Comment 1.1 0.8-1.4 Activated Partial Thromboplast Time 31 24-35 SEC My Orders Orders - ISRA PINA APRN Cbc With Automated Diff (04/01/18 16:33) Magnesium (04/01/18 16:33) Chest 1 View, Ap/Pa Only (04/01/18 16:33) Ekg Tracing (04/01/18 16:33) Cardiac Profile 1 (04/01/18 16:33) Comprehensive Metabolic Panel (04/01/18 16:33) Myoglobin Serum (04/01/18 16:33) Protime With Inr (04/01/18 16:33) Partial Thromboplastin Time (04/01/18 16:33) O2 (04/01/18 16:33) Monitor-Rhythm Ecg Trace Only (04/01/18 16:33) Lipid Panel (04/02/18 06:00) Aspirin Chewable Tablet (Baby Aspirin Ch (04/01/18 16:45) Saline Lock/Iv-Start (04/01/18 16:33) Ns Iv 1000 Ml (Sodium Chloride 0.9%) (04/01/18 16:45) Medications Given in ED Current Medications Medications Dose Ordered Sig/Essie Route Start Time Stop Time Status Last Admin Dose Admin Aspirin 324 mg ONCE ONCE PO 04/01/18 16:45 04/01/18 16:46 DC 04/01/18 16:58 324 MG Vital Signs/I&O 04/01/18 04/01/18 16:23 16:58 Temp 98.0 98.0 Pulse 85 Resp 20 B/P (MAP) 155/114 (128) Pulse Ox 97 O2 Delivery Room Air Blood Pressure Mean: 128 Departure Communication (Admissions) [id number]- I spoke with Dr. Gaffney. He would recommend restarting Eliquis, he'll see the patient in the office. Discussed this with the patient. He states he is not going to restart Eliquis I did advise of the possibility of stroke development with untreated A. fib however thisepisode of tachycardia may simply have been sinus in nature as well. Patient states he will follow up with elective college service officer Dr. Archer in [place] Impression Primary Impression: Intermittent Tachycardia Disposition: 01 HOME, SELF-CARE Condition: Stable Departure-Patient Inst. Decision time for Depature: 17:15 Referrals: ALEXIS CUMMINGS MD (PCP/Family) Primary Care Physician Patient Instructions: Palpitations (DC) Add. Discharge Instructions: All discharge instructions reviewed with patient and/or family. Voiced understanding. ISRA PINA APRN Apr 01, 2018 17:15
[2018-04-01 17:33] LABS: INR 1.1 (0.8-1.4); PROTHROMBIN TIME PATIENT 14.6 SEC (12.2-14.7)
[2018-04-01 18:15] VITALS: BP 144/94
== END 2018-04-01 18:15 | disposition home or self-care (01) ==
LOC: EDUNIT# 16:16 → ER 16:18
DX: R00.0 Tachycardia, unspecified (principal); I48.91 Unspecified atrial fibrillation; I10 Essential (primary) hypertension; F12.90 Cannabis use, unspecified, uncomplicated; Z90.49 Acquired absence of other specified parts of digestive tract; Z87.828 Personal history of other (healed) physical injury and trauma; Z87.891 Personal history of nicotine dependence; Z98.890 Other specified postprocedural states
CPT/HCPCS: 36415; 71045; 80053; 83735; 83874; 84484; 85025; 85610; 85730; 93005; 93041; 96360